=== PATIENT | male | born 1945 | race American Indian/Alaskan Native ===

== ENCOUNTER 2016-12-26 09:23 | Outpatient (CLI) | payer MEDICARE ==
[2016-12-26 10:29] LABS: Blood Urea Nitrogen 13 mg/dL (9-20)
--- NOTE | 2016-12-26 16:09 | Magnetic Resonance Report ---
MRI LUMBAR SPINE WITH AND WITHOUT CONTRAST INDICATION: Spinal stenosis, lumbosacral region. COMPARISON: None similar at this institution. FINDINGS: Multiplanar and multisequence MRI of the lumbar spine performed following 15 ml Multihance intravenously. Patient medicated for claustrophobia. 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 Imaged T11-L2 vertebral bodies demonstrate normal stature, alignment and marrow signal except for slight edema along L1 inferior endplate. L3-L5 vertebral bodies demonstrate degenerative spurring, greatest inferiorly with Modic type II degenerative changes, greatest at L4 and L5. Normal lower thoracic disc heights and signal. Diffuse lumbar disc degeneration/loss of signal noted with moderate to severe narrowing inferiorly at L4-5 and L5-S1. Some L4 and S1 edema signal as also in L5 vertebral body peripherally on either side, possibly also extending into the pedicles. Though in part limited due to motion artifact, an approximately 1.8 cm right renal cyst inferiorly may be noted, axial image 30, series 6 and another possibly 1.7 cm in the left kidney superiorly, axial image 39, series 9. Non-aneurysmal abdominal aorta. On the obtained axial images: T12-L1 is unremarkable. AP thecal sac caliber is 1.5 cm. L1-L2 demonstrates mild diffuse disc bulge with ventral CSF indentation. Bilateral ligamentum flavum hypertrophy and prominent posterior epidural fat displaces the thecal sac with AP thecal sac caliber approximately 0.9 cm, axial image 31, series 8. L2-L3 also demonstrates prominent posterior epidural fat and slight ventral disc bulge/thecal sac impression. AP thecal sac caliber estimated at 0.8 cm, axial image 26. Mild bilateral facet arthropathy. L3-L4 demonstrates moderate bilateral facet arthropathy and ligamentum flavum hypertrophy. Prominent posterior epidural fat again displaces the thecal sac anteriorly with AP thecal sac caliber estimated at 0.8 cm, axial image 19. Left more than right neural foraminal narrowing/undercutting. L4-L5 demonstrates mild diffuse disc bulge/osteophyte complex with slight ventral indentation of the thecal sac. Right more than left facet arthropathy and mild bilateral ligamentum flavum hypertrophy. Moderate right neural foraminal narrowing/undercutting, contacting the exiting L4 nerve root. Approximately 4 mm midline annular fissure may also be noted, sagittal series 3, image 6. Prominent posterior epidural fat flattens the thecal sac. AP thecal sac caliber approximately 8 mm, axial image 12, series 8. L5-S1 also demonstrates mild diffuse disc bulge/osteophyte complex, though predominantly ventral epidural. Bilateral neural foraminal narrowing/undercutting possible. Mild bilateral facet arthropathy. AP thecal sac caliber approximately 1 cm, axial image 7. Postcontrast images demonstrate mild multilevel lumbar facet/perifacet soft tissue enhancement, greatest at L3-L4 bilaterally and on the right at L4-L5. Mild L4 and L5 vertebral body enhancement peripherally also noted, corresponding to the regions of the edema. CONCLUSION: Multilevel lumbar degenerative changes, greatest inferiorly at L3 and L4 as also multilevel lumbar spinal stenosis in this patient with epidural lipomatosis, as described. Please correlate. Thank you for the opportunity to participate in this patient's care.
== END 2016-12-26 09:24 | disposition home or self-care (01) ==
LOC: MRI 09:23
PROVIDERS: ATTEND Physical Medicine & Rehabilitation
DX: M48.07 Spinal stenosis, lumbosacral region (principal); N28.1 Cyst of kidney, acquired; M47.896 Other spondylosis, lumbar region; M24.28 Disorder of ligament, vertebrae; M12.88 Other specific arthropathies, not elsewhere classified, other specified site
CPT/HCPCS: 36415; 72158; 82565; 84520; A9577